=== PATIENT | female | born 1975 | race American Indian/Alaskan Native ===

== ENCOUNTER 2017-04-26 12:00 | Outpatient (CLI) | payer BC ==
--- NOTE | 2017-04-27 08:56 | Cat Scan Report ---
CT abdomen and pelvis with and without IV contrast: Nausea and vomiting. No surgical history given. Transverse images were obtained from the low chest to the pelvis prior to and following IV and oral contrast. Coronal and sagittal reformatted images included. The visualized lung bases are unremarkable. The esophagus is nondilated. Surgical clips are located at the esophagogastric junction. The stomach is otherwise unremarkable as is the proximal small bowel. No solid organ lesions identified. Normal appearing gallbladder. Retroperitoneal structures are unremarkable. The partially opacified small bowel and colon appear grossly normal. Sections through the pelvis demonstrate an inhomogeneous uterus that appears to contain a large hypoattenuating mass. Abundant superficial soft tissue fat. Unremarkable bony structures. Impression: Surgical changes involving the esophagogastric location. No complications identified. No evidence of obstruction.
== END 2017-04-26 12:01 | disposition home or self-care (01) ==
LOC: CT 12:00
PROVIDERS: ATTEND Specialist
DX: R11.2 Nausea with vomiting, unspecified (principal); R10.816 Epigastric abdominal tenderness
CPT/HCPCS: 74178; Q9967